=== PATIENT | male | born 1945 | race Caucasian/White ===

== ENCOUNTER 2017-03-10 16:16 | Observation (INO) ==
[2017-03-10 17:13] LABS: Basophils % 0.7 %; Eosinophils # 0.1 K/mcL (0.0-0.6); Eosinophils % 1.7 %; Hemoglobin 16.3 g/dL (12.9-16.9); Immature Granulocytes % 0.2 % (0-4); Lymphocytes # 0.9 K/mcL (0.6-4.6); Lymphocytes % 16.1 %; Mean Corpuscular HGB Conc 33.3 g/dL (31.6-35.5); Mean Corpuscular Hemoglobin 30.9 pg (28.0-33.3); Mean Platelet Volume 9.9 fL (9.4-12.4); Monocytes # 0.5 K/mcL (0.0-1.3); Monocytes % 9.1 %; Neutrophils # 4.2 K/mcL (1.6-8.9); Platelet Count 175 K/mcL (140-400); Red Blood Count 5.27 M/mcL (4.19-5.50); Red Cell Distribution Width 12.8 % (11.5-14.5); Segmented Neutrophils % 72.2 %
[2017-03-10 17:22] LABS: Prothrombin Time 10.4 Seconds (9.4-12.1)
--- NOTE | 2017-03-10 17:30 | Emergency Department Note ---
Disposition Clinical Impression: Chest pain Qualifiers: Chest pain type: unspecified Qualified Code(s): R07.9 - Chest pain, unspecified Disposition: Admitted As Inpatient Condition: Good Time of Disposition: 18:26 Chest Pain HPI - General Chief Complaint: ED Chest Pain Stated Complaint: chest pain Time Seen by Provider: 03/10/17 17:24 Source: patient Mode of arrival: ambulatory Limitations: no limitations Vital Signs Reviewed: Yes Nursing Notes Reviewed: Yes - History of Present Illness HPI Narrative: 72-year-old comes in complaining of chest pain off and on for last 2 weeks. Patient has no history of previous HI. Patient has a history of diabetes hypertension and hypercholesterolemia. He is a family history. Patient is a former smoker. Pt complaint: chest pain Onset (ago): week(s) Duration: intermittent (2) Onset: during exertion Pain Location: substernal, left chest Severity scale (1-10): 0 Quality: tightness, aching Pain Radiation: none Improves with: rest Worsens with: exertion Associated symptoms: Denies: nausea, vomiting Treatments prior to arrival chest pain: none - Related Data Home Medications Medication Instructions Recorded Confirmed Acetaminophen [Tylenol] 650 mg PO Q6HR PRN 12/09/16 12/11/16 Aspirin 81 mg PO DAILY 12/09/16 12/11/16 Benazepril/Hydrochlorothiazide 1 each PO DAILY 12/09/16 12/11/16 [Lotensin Hct 10-12.5 mg Tablet] Cetirizine HCl [Zyrtec] 10 mg PO DAILY 12/09/16 12/11/16 Metoprolol Succinate 25 mg PO DAILY 12/09/16 12/11/16 Pravastatin Sodium [Pravachol] 40 mg PO DAILY 12/09/16 12/11/16 metFORMIN [Glucophage] 1,000 mg PO BIDWM 12/09/16 12/11/16 Ranitidine HCl [Acid Processing Associate] 25 mg PO DAILY PRN 12/11/16 12/11/16 Ranitidine HCl [Acid Processing Associate] 25 mg PO DAILY PRN 12/11/16 12/11/16 Allergies Allergy/AdvReac Type Severity Reaction Status Date / Time No Known Allergies Allergy Verified 12/09/16 13:46 All systems ED: reviewed and negative except as stated. Constitutional: Denies: fever, chills, weakness, weight change Eyes: Denies: eye pain, eye discharge, vision change ENT ED: Denies: ear pain, throat pain, dental pain, hearing loss, epistaxis, congestion, dysphagia Cardiovascular: Reports: chest pain. Denies: palpitations, dyspnea on exertion , edema, syncope Respiratory: Denies: cough, dyspnea, wheezes, hemoptysis, stridor Gastrointestinal: Denies: abdominal pain, nausea, vomiting, diarrhea, constipation, hematemesis, melena, hematochezia Genitourinary: Denies: urgency, dysuria, frequency, hematuria Musculoskeletal: Denies: back pain, neck pain, arthralgia, myalgia Integumentary: Denies: rash, abrasion, lesions Neurological: Denies: headache, weakness, numbness, paresthesias, confusion, abnormal gait, vertigo Psychiatric: Denies: anxiety, depression, suicidal thoughts, homicidal thoughts , auditory hallucinations, visual hallucinations Endocrine: Denies: fatigue Hematological/Lymphatic: Denies: easy bleeding, easy bruising Allergic/Immunologic: Denies: facial swelling, urticaria Chest Pain PMH - Past Medical History Medical history: Reports: cancer, diabetes, hyperlipidemia, hypertension Psychiatric history: Reports: no psych history - Social History Smoking Status: Former smoker Alcohol use: Reports: none Drug use: Reports: none Physical Exam - General Limitations: no limitations General appearance: alert - Head Head exam: atraumatic, normocephalic, normal inspection - Eye Eye exam: Present: normal appearance, PERRL, EOMI - ENT ENT exam: normal exam, normal oropharynx, mucous membranes moist - Neck Neck exam: Present: normal inspection, full ROM, trachea midline - Chest Chest inspection: Present: normal inspection, symmetric chest wall rise - Respiratory Respiratory exam: Present: normal lung sounds bilaterally - Cardiovascular Cardiovascular exam: Present: regular rate, normal rhythm, normal heart sounds - Abdominal Exam Abdominal exam: Present: soft, Non-Tender. Absent: tenderness, distention, guarding, rebound, rigidity - Extremities Exam Extremities exam: Present: normal inspection, full ROM. Absent: tenderness, pedal edema - Expanded Lower Extremity Exam Neurovascular/Tendon exam: Absent: motor deficit, sensory deficit, tendon deficit Gait: not tested/not observed - Back Exam Back exam: Present: normal inspection, full ROM. Absent: tenderness - Neurological Exam Neurological exam: Present: alert, oriented X3 - Psychiatric Psychiatric exam: Present: normal affect, normal mood - Skin Skin exam: Present: warm, dry, intact, normal color Course - Reevaluation(s) Reevaluation #1: 72-year-old comes in with multiple risk factors complaining of intermittent chest pain with exertion. Time: 18:25 - Consultations Consultation #1: Discussed with Eliseo Morales Time: 18:25 Vital Signs Temperature 97.8 F 03/10/17 16:21 Pulse Rate 93 03/10/17 16:21 Respiratory Rate 22 03/10/17 16:21 Blood Pressure 127/83 03/10/17 16:21 O2 Sat by Pulse Oximetry 94 03/10/17 16:21 Temperature 97.8 F 03/10/17 16:21 Pulse Rate 89 03/10/17 17:22 Respiratory Rate 20 03/10/17 17:22 Blood Pressure 120/73 03/10/17 17:22 O2 Sat by Pulse Oximetry 93 03/10/17 17:22 Oxygen Delivery Oxygen Delivery Room Air Chest Pain - Lab Data Result diagrams: 03/10/17 17:01 03/10/17 17:01 Lab Results 03/10/17 03/10/17 03/10/17 Range/Units 17:01 17:01 17:01 WBC 5.8 (4.3-11.1) K/mcL RBC 5.27 (4.19-5.50) M/mcL Hgb 16.3 (12.9-16.9) g/dL Hct 49.0 (37.5-50.1) % MCV 93.0 (83.0-100.0) fL MCH 30.9 (28.0-33.3) pg MCHC 33.3 (31.6-35.5) g/dL RDW 12.8 (11.5-14.5) % Plt Count 175 (140-400) K/mcL MPV 9.9 (9.4-12.4) fL Immature Gran % 0.2 (0-4) % Seg Neutrophils % 72.2 % Lymphocytes % 16.1 % Monocytes % 9.1 % Eosinophils % 1.7 % Basophils % 0.7 % Neutrophils # 4.2 (1.6-8.9) K/mcL Lymphocytes # 0.9 (0.6-4.6) K/mcL Monocytes # 0.5 (0.0-1.3) K/mcL Eosinophils # 0.1 (0.0-0.6) K/mcL Basophils # 0.0 (0.0-0.2) K/mcL PT 10.4 (9.4-12.1) Seconds INR 1.0 APTT 29.0 (26.0-36.0) Seconds Sodium (136-145) mEq/L Potassium (3.5-4.5) mEq/L Chloride (98-109) mEq/L Carbon Dioxide (19-29) mEq/L BUN (8-26) mg/dL Creatinine (0.72-1.25) mg/dL Est GFR ( Amer) (> 60) Est GFR (Non-Af Amer) (> 60) BUN/Creatinine Ratio (6-26) Glucose (70-99) mg/dL Calculated Osmolality (280-300) Calcium (8.6-10.8) mg/dL Troponin I (0-0.03) ng/mL B-Natriuretic Peptide 12 (0-100) pg/mL 03/10/17 03/10/17 Range/Units 17:01 17:01 WBC (4.3-11.1) K/mcL RBC (4.19-5.50) M/mcL Hgb (12.9-16.9) g/dL Hct (37.5-50.1) % MCV (83.0-100.0) fL MCH (28.0-33.3) pg MCHC (31.6-35.5) g/dL RDW (11.5-14.5) % Plt Count (140-400) K/mcL MPV (9.4-12.4) fL Immature Gran % (0-4) % Seg Neutrophils % % Lymphocytes % % Monocytes % % Eosinophils % % Basophils % % Neutrophils # (1.6-8.9) K/mcL Lymphocytes # (0.6-4.6) K/mcL Monocytes # (0.0-1.3) K/mcL Eosinophils # (0.0-0.6) K/mcL Basophils # (0.0-0.2) K/mcL PT (9.4-12.1) Seconds INR APTT (26.0-36.0) Seconds Sodium 140 (136-145) mEq/L Potassium 3.8 (3.5-4.5) mEq/L Chloride 103 (98-109) mEq/L Carbon Dioxide 25 (19-29) mEq/L BUN 26 (8-26) mg/dL Creatinine 1.69 H (0.72-1.25) mg/dL Est GFR ( Amer) 49 L (> 60) Est GFR (Non-Af Amer) 40 L (> 60) BUN/Creatinine Ratio 15 (6-26) Glucose 181 H (70-99) mg/dL Calculated Osmolality 299 (280-300) Calcium 9.3 (8.6-10.8) mg/dL Troponin I 0.00 (0-0.03) ng/mL B-Natriuretic Peptide (0-100) pg/mL - EKG Data EKG attestation: Yes I reviewed and interpreted this EKG. EKG shows normal: sinus rhythm Rate: normal Rhythm: NSR Interpretation: no acute changes Heart Score - Score History: Moderately Suspicious EKG: Non Specific repolarisation Disturbance Age: Greater than 65 Risk Factors: Equal/Greater than 3 risk factor or history of atherosclerotic disease Troponin: Less than normal limit HEART Score Total: 6
[2017-03-10 17:33] LABS: Calcium 9.3 mg/dL (8.6-10.8); Potassium 3.8 mEq/L (3.5-4.5)
[2017-03-10] MEDS ORDERED: Aspirin 81 MG TAB.CHEW PO STA (19:25)
[2017-03-10] MEDS ORDERED: Aspirin 81 MG TAB.CHEW ONE (19:27)
[2017-03-10] MEDS ORDERED: Ondansetron 4 MG/2 ML VIAL IVP PRN (20:45)
[2017-03-10] MEDS ORDERED: Naloxone 0.4 MG/ML INJ IVP PRN (20:45)
[2017-03-10] MEDS ORDERED: *HR* Morphine 2 MG/ML SYRINGE IVP PRN (20:45)
[2017-03-10] MEDS ORDERED: Acetaminophen 325 MG TABLET PO PRN (20:45)
[2017-03-10] MEDS ORDERED: Dextrose Gel 15 GM PO PRN ×2 (20:50)
[2017-03-10] MEDS ORDERED: *HR* Dextrose 50 % in Water (Syg) 50 ML SYRINGE IVP PRN (20:50)
[2017-03-10] MEDS ORDERED: D5% in Water 1,000 ML IVC PRN (20:50)
[2017-03-10] MEDS ORDERED: Insulin LISPRO 300 UNITS/3 ML VIAL SQ SCH (21:00)
[2017-03-10] MEDS ORDERED: Famotidine 20 MG TABLET PO SCH (21:00)
[2017-03-10] MEDS ORDERED: 0.9 % Sodium Chloride 1,000 ML IVC SCH (22:45)
--- NOTE | 2017-03-10 23:34 | Internal Med History&Physical ---
<Dorcas Gonzalez - Last Filed: 03/10/17 23:43> Date of Encounter: 03/10/17 Time of Encounter: 21:00 Assessment and Plan (1) Chest pain Current visit: Yes Status: Acute 1 she has been experiencing chest pain on exertion with associated symptoms of nausea and shortness of breath for the past 2 weeks. Pain is relieved with rest. He did have a stress test in November of this year completed at [facility] which was negative for any ischemia or infarct. Troponin is 0 which we will continue to trend 2 we will consult cardiology-order has been placed day team to follow-up 3 nitrates as needed for chest pain 4 oxygen as needed to maintain SPO2 greater than 92% 5 continue with aspirin and statin we will check lipid profile in a.m. 6 continuous cardiac monitoring Qualifiers: Chest pain type: unspecified Qualified Code(s): R07.9 - Chest pain, unspecified (2) GT (acute kidney injury) Current visit: Yes Status: Acute 1 patient's creatinine is 1.69 which is up from previous which was 1.32. Patient does admit he does not drink or smoke C 80s inhibitor. Suspect this is contributing to his elevation in creatinine. We will hold MIKE inhibitor overnight and give gentle fluids and recheck creatinine in the a.m. 2 monitor intake and output daily weights 3 avoid nephrotoxins (3) Diabetes mellitus Current visit: Yes Status: Acute 1 hold metformin for now Accu-Cheks before meals at bedtime with sliding scale insulin 2 diabetic diet Qualifiers: Diabetes mellitus type: type 2 Diabetes mellitus complication status: without complication Diabetes mellitus intermediate project manager insulin use: without intermediate project manager use Qualified Code(s): E11.9 - Type 2 diabetes mellitus without complications (4) HTN (hypertension) Current visit: No Status: Chronic 1 we will hold MIKE for now due to GT 2 low sodium diet Qualifiers: Hypertension type: essential hypertension Qualified Code(s): I10 - Essential (primary) hypertension (5) DVT prophylaxis Current visit: Yes Status: Acute [facility] Internal Medicine - H&P: HPI Chief complaint: cp Admitted From: Emergency Dept Plans for Post Hospital Care: Home History of present illness: Mr. Vieyra is a 72 year old male past history of diabetes hypertension hyperlipidemia prostate cancer. For the past 2 weeks the patient has been experiencing midsternal chest pain that occurs with exertion and is relieved with rest. He has been taking Tylenol which will at times ease his pain. He has associated symptoms of shortness of breath occasional nausea. Denies any past cardiac history he had a recent stress test in November at [facility] which was negative for any ischemia or infarct. He does have a family history of cardiac disease with his father dying in his 40s from an [place] He is a former smoker. He presented to the ER with the above complaints cardiac workup was completed chest x-ray was negative first troponin was 0. EKG with no ST abnormalities. Presently he is chest pain-free He has been admitted for further workup evaluation. Past Med Surg Social Fam HX - Past Medical History Medical history: cancer, diabetes, hyperlipidemia, hypertension Psychiatric history: no psych history - Social History Smoking Status: Former smoker Smokeless Tobacco Status: No Alcohol use: none Drug use: none - Family History Father Hx Family Cardiac Disorders: Yes ([place]) Hx Family Endocrine Disorder: Yes (DM) Internal Medicine - H&P: Meds Acetaminophen [Tylenol] 650 mg PO Q6HR PRN 12/09/16 [History] Aspirin 81 mg PO DAILY 12/09/16 [History] Cetirizine HCl [Zyrtec] 10 mg PO DAILY PRN 12/09/16 [History] Pravastatin Sodium [Pravachol] 40 mg PO HS 12/09/16 [History] metFORMIN [Glucophage] 1,000 mg PO BIDWM 12/09/16 [History] Ranitidine HCl [Acid Can Operator] 75 mg PO HS 12/11/16 [History] Benazepril/Hydrochlorothiazide [Lotensin Hct 20-12.5 mg Tablet] 1 each PO DAILY 03/10/17 [History] 3 Allergy/AdvReac Type Severity Reaction Status Date / Time No Known Allergies Allergy Verified 12/09/16 13:46 All Systems PM: A 10-system review of systems was performed and is negative for pertinent findings except as documented above in the HPI. - Constitutional Constitutional: no chills, no fever(s), no night sweats - EENT Eyes: no change in vision, no discharge, no pain, no photophobia Ears: no ear discharge, no ear pain, no tinnitus Nose, mouth and throat: no dysphagia, no nasal discharge, no neck pain, no sore throat - Cardiovascular Cardiovascular ROS IM: chest pain - Respiratory Respiratory: dyspnea on exertion, no cough, no dyspnea, no wheezing, no excessive phlegm production - Gastrointestinal Gastrointestinal: no abdominal pain, no diarrhea, no hematemesis, no hematochezia, no melena, no nausea, no vomiting - Musculoskeletal Musculoskeletal ROS IM: no numbness, no tingling - Integumentary Integumentary IM: no rash, no unusual bruising - Neurological Neurological ROS: no confusion, no convulsions, no focal weakness, no numbness, no tingling, no tremor(s) - Hematologic/Lymphatic Hematologic/Lymphatic: no easy bruising - Constitutional Vitals: Temp Pulse Resp BP Pulse Ox 97.5 F L 66 12 148/82 95 03/10/17 22:48 03/10/17 22:48 03/10/17 22:48 03/10/17 22:48 03/10/17 22:48 General appearance: Present: A&O X 3, answers questions appropriately - Head Head exam: Present: atraumatic, normocephalic - Eye Eye exam: Present: PERRL, conjuntiva pink, sclera anicteric Pupils: Present: PERRL - Neck Neck exam general surgery: Present: supple, trachea midline. Absent: lymphadenopathy - Respiratory Respiratory exam: Present: CTAB. Absent: accessory muscle use, rales, rhonchi, wheezes - Cardiovascular Cardiovascular exam: Present: RRR, +S1, +S2. Absent: diastolic murmur, gallop, rubs, systolic murmur - GI/Abdominal GI/Abdominal exam: Present: normal bowel sounds, soft, no peritoneal signs. Absent: distended, tenderness - Extremities Exam Extremities exam: Present: warm, radial pulses palpable and symmetrical. Absent : calf tenderness, cyanotic, pedal edema - Neurological Exam Neurological exam: Present: CN II-XII intact, oriented X3, no focal deficits. Absent: pronater drift, facial droop, speech deficit - Skin Skin exam: Present: dry, intact Internal Med - H&P Results - Labs CBC & Chem 7: 03/10/17 17:01 03/10/17 17:01 - EKG Data EKG shows normal: sinus rhythm - EKG Data Prior EKG available for review: yes When compared to previous EKG: there is no significant change - Diagnostic Studies Other Images Additional comments: Chest X-Ray 03/10/17 16:25 IMPRESSION: No acute process. D/ / Iván Leahy MD / Iván Leahy MD Interpreting Provider: Iván Leahy MD <MichaelDeng weinstein - Last Filed: 03/11/17 00:10> Date of Encounter: 03/10/17 Internal Medicine - H&P: HPI History of present illness: Mr. Vieyra is a 72 year old male Past Med Surg Social Fam HX - Past Surgical History Surgical History: other (colonoscopy with polypectomy) All Systems PM: A 10-system review of systems was performed and is negative for pertinent findings except as documented above in the HPI. - Constitutional Vitals: Temp Pulse Resp BP Pulse Ox 97.5 F L 66 12 148/82 95 03/10/17 22:48 03/10/17 22:48 03/10/17 22:48 03/10/17 22:48 03/10/17 22:48 Internal Med - H&P Results - Labs CBC & Chem 7: 03/10/17 17:01 03/10/17 17:01 - Attending Attestation I personally interviewed and examined this patient and my medical decision- making was reviewed with the Advanced Practice Nurse. I agree with the documented findings, disposition and treatment plan as described. Patient with no prior history of CAD but significant family history of this condition with a negative stress test in July this year comes in with progressively worsening exertional chest pain that is exercise limiting. We will appreciate cardiology input for consideration of cardiac catheterization. Deng Pan MD, MPH Hospitalist
[2017-03-11 05:33] LABS: Basophils # 0.1 K/mcL (0.0-0.2); Basophils % 0.9 %; Eosinophils # 0.1 K/mcL (0.0-0.6); Eosinophils % 2.5 %; Hematocrit 45.4 % (37.5-50.1); Hemoglobin 15.5 g/dL (12.9-16.9); Immature Granulocytes % 0.4 % (0-4); Lymphocytes # 1.1 K/mcL (0.6-4.6); Lymphocytes % 19.1 %; Mean Corpuscular HGB Conc 34.1 g/dL (31.6-35.5); Mean Corpuscular Hemoglobin 30.7 pg (28.0-33.3); Mean Corpuscular Volume 89.9 fL (83.0-100.0); Mean Platelet Volume 9.6 fL (9.4-12.4); Monocytes # 0.7 K/mcL (0.0-1.3); Neutrophils # 3.6 K/mcL (1.6-8.9); Platelet Count 159 K/mcL (140-400); Red Blood Count 5.05 M/mcL (4.19-5.50); Segmented Neutrophils % 65.1 %
[2017-03-11 05:49] LABS: BUN/Creatinine Ratio 18 (6-26); Blood Urea Nitrogen 23 mg/dL (8-26); Calcium 9.2 mg/dL (8.6-10.8); Carbon Dioxide 24 mEq/L (19-29); Chloride 107 mEq/L (98-109); Chol/HDL Ratio 3.5 (0-4.9); Cholesterol 143 mg/dL (< 200); Glucose 103 mg/dL (70-99); HDL Cholesterol 41 mg/dL (40-59); LDL Cholesterol,Calculated 77 mg/dL (0-99); Magnesium 1.9 mg/dL (1.6-2.6); Osmolality,Calculated 294 (280-300); Potassium 3.9 mEq/L (3.5-4.5); Sodium 140 mEq/L (136-145); Triglycerides 125 mg/dL (< 150); eGFR For African Americans > 60 (> 60); eGFR For Non-African Americans 56 (> 60)
[2017-03-11] MEDS ORDERED: Aspirin 81 MG TAB.CHEW PO SCH (09:00)
[2017-03-11] MEDS: Insulin LISPRO 300 UNITS/3 ML VIAL SQ SCH ×2 (09:23→12:29)
[2017-03-11] MEDS ORDERED: Isosorbide MONOnitrate (24 HR) 30 MG TAB.ER.24H PO SCH (11:15)
--- NOTE | 2017-03-11 11:19 | Cardiology Consult Note ---
Date of Encounter: 03/11/17 Time of Encounter: 11:15 Assessment and Plan (1) Chest pain Current Visit: Yes Status: Acute C/o typical chest pain symptoms. Cardiac risk factors include DM, HTN, HLD, and previous tobacco use. Troponin negative x3. EKG reported to show no acute changes. I do not have EKG available for my review. EKG ordered. Stress test completed earlier this year was negative for ischemia. He met 8.1 mets. good exercise capacity. LHC vs. medical management recommended. Patient is considering. Start metoprolol and imdur. Check TTE. Qualifiers: Chest pain type: unspecified Qualified Code(s): R07.9 - Chest pain, unspecified (2) HTN (hypertension) Current Visit: No Status: Chronic B/p acceptable. Qualifiers: Hypertension type: essential hypertension Qualified Code(s): I10 - Essential (primary) hypertension Discussion w patient/family: The assessment and plan as outlined above was discussed with the patient and/or family members who expressed understanding and agreement. All questions were answered. Thank you for involving us in the care of your patient. Please call with any questions. History of Present Illness Consult date: 03/11/17 Requesting physician: Deng Pan Consult reason: Chest pain Chief complaint: Chest pain for 2 weeks History of present illness: Mr. Vieyra is a 72 year old male with a history of DM, HTN, HLD, and previous tobacco use who presents with chest pain. He c/o midstarnal non-radiating chest pain starting 2 weeks ago. The pain occurs when he walks and is associated with SOB. He states that he walks a mile a day. The last couple of times he walked he had to stop due to chest pain. He denies history of CAD. He saw Dr. Mata earlier this year with chest discomfort. He underwent exercise nuclear stress test that was found to be negative 07/2016. Past Med Surg Social Fam HX - Past Medical History Attestation: Yes The following information was validated with the patient. Medical history: cancer (prostate), diabetes, hyperlipidemia, hypertension Psychiatric history: no psych history - Past Surgical History Surgical History: other (colonoscopy with polypectomy) - Social History Smoking Status: Former smoker Smokeless Tobacco Status: No Alcohol use: none Drug use: none - Family History Father Hx Family Cardiac Disorders: Yes ([place]) Hx Family Endocrine Disorder: Yes (DM) Medications and Allergies Acetaminophen [Tylenol] 650 mg PO Q6HR PRN 12/09/16 [History] Aspirin 81 mg PO DAILY 12/09/16 [History] Cetirizine HCl [Zyrtec] 10 mg PO DAILY PRN 12/09/16 [History] Pravastatin Sodium [Pravachol] 40 mg PO HS 12/09/16 [History] metFORMIN [Glucophage] 1,000 mg PO BIDWM 12/09/16 [History] Ranitidine HCl [Acid Dental Professional] 75 mg PO HS 12/11/16 [History] Benazepril/Hydrochlorothiazide [Lotensin Hct 20-12.5 mg Tablet] 1 each PO DAILY 03/10/17 [History] 3 Allergy/AdvReac Type Severity Reaction Status Date / Time No Known Allergies Allergy Verified 12/09/16 13:46 All Systems Review: A 10-system review of systems was performed and is negative for pertinent findings except as documented above in the HPI. Physical Examination Vital Signs, Last 4 Hours Temp Pulse Resp BP Pulse Ox 03/11/17 11:00 97.7 F 67 16 122/72 95 General: Conversant, No Apparent Distress HEENT: Atraumatic, Normocephaly, Mucus Membranes Moist Neck: No JVD, Normal carotid pulses Cardiac: Reg Rate and Rhythm, Normal S1 and S2, No Murmur Lungs: Normal Breath Sounds, No Wheeze, Rales, Rhonchi Neuro: Alert and responsive, No focal deficits noted Abdomen: Soft, Non-Tender Skin: No rashes noted on visualized skin Musculoskeletal: No Chest Wall Tenderness Extremities: No Clubbing, No Cyanosis, No Edema, Normal Pulses Results 03/11/17 04:59 03/11/17 04:59 Lab Results 03/10/17 03/11/17 03/11/17 23:06 04:59 04:59 WBC 5.5 Hgb 15.5 Hct 45.4 Plt Count 159 Sodium 140 Potassium 3.9 Chloride 107 Carbon Dioxide 24 BUN 23 Creatinine 1.26 H Glucose 103 H Calcium 9.2 Magnesium 1.9 Troponin I 0.00 03/11/17 04:59 WBC Hgb Hct Plt Count Sodium Potassium Chloride Carbon Dioxide BUN Creatinine Glucose Calcium Magnesium Troponin I 0.00 - Imaging and Cardiology Echo: pending Consult Discharge Plan - Plan
--- NOTE | 2017-03-11 14:03 | Discharge Summary ---
Date of Encounter: 03/11/17 Time of Encounter: 10:00 - Discharge Diagnosis (1) Chest pain Priority: Primary Status: Acute Comments: Patient has been experiencing chest pain with exertion and nausea, dyspnea on exertion for the last 2 weeks. Patient also reports feeling as if his chest pounding while he is up walking. Pain is located midsternally without radiation. Patient denies diaphoresis. Pain was relieved with rest. Stress test was negative in November, at [facility]. Currently, patient denies any chest pain, no dyspnea on exertion while up walking around the room. He also denies shortness of breath at rest. Troponins were negative 3, EKG normal sinus with no acute ST changes. Patient was seen by cardiology who recommends medical management, patient is in agreement with this approach. Patient has already started on Imdur at admission , also start metoprolol, and check TTE. Qualifiers: Chest pain type: unspecified Qualified Code(s): R07.9 - Chest pain, unspecified (2) GT (acute kidney injury) Priority: Secondary Status: Acute Comments: Renal function is improving. Serum creatinines 1.26, GFR is 56. Continue to avoid nephrotoxins. Lisinopril has been stopped, patient is aware to continue to increase fluid intake, primarily water. Patient will restart lisinopril for blood pressure control on Wednesday and follow up with primary care for further management and medication adjustments. (3) Diabetes mellitus Priority: Secondary Status: Chronic Comments: Continue home medication and Accu-Chek regimen as established prior to admission. Qualifiers: Diabetes mellitus type: type 2 Diabetes mellitus complication status: without complication Diabetes mellitus fci insulin use: without termite control service representative use Qualified Code(s): E11.9 - Type 2 diabetes mellitus without complications (4) HTN (hypertension) Priority: Secondary Status: Chronic Comments: Well-controlled. Continue home medications. Lisinopril has been held due to GT. Renal function is improving, GFR 66, serum creatinine 1.26. Recommend patient does not take it for 2 more days and will restart on Wednesday. Patient will need to follow up with primary care for continued monitoring and medication changes. Qualifiers: Hypertension type: essential hypertension Qualified Code(s): I10 - Essential (primary) hypertension (5) DVT prophylaxis Priority: Primary Status: Acute Comments: LU fuller. Early ambulation. - Discharge Medications Prescriptions: Isosorbide MONOnitrate (24 HR) [Imdur] 30 mg PO DAILY #30 tab.er.24h Metoprolol [Lopressor] 25 mg PO BID #60 tablet Home Medications: Acetaminophen [Tylenol] 650 mg PO Q6HR PRN 12/09/16 [History] Aspirin 81 mg PO DAILY 12/09/16 [History] Cetirizine HCl [Zyrtec] 10 mg PO DAILY PRN 12/09/16 [History] Pravastatin Sodium [Pravachol] 40 mg PO HS 12/09/16 [History] metFORMIN [Glucophage] 1,000 mg PO BIDWM 12/09/16 [History] Ranitidine HCl [Acid Needle Maker] 75 mg PO HS 12/11/16 [History] Benazepril/Hydrochlorothiazide [Lotensin Hct 20-12.5 mg Tablet] 1 each PO DAILY 03/10/17 [History] Isosorbide MONOnitrate (24 HR) [Imdur] 30 mg PO DAILY #30 tab.er.24h 03/11/17 [ Rx] Metoprolol [Lopressor] 25 mg PO BID #60 tablet 03/11/17 [Rx] Allergies/Adverse Reactions: 3 Allergy/AdvReac Type Severity Reaction Status Date / Time No Known Allergies Allergy Verified 12/09/16 13:46 Procedures/tests Complete & Pending: Procedures Performed prior 72 hours Category Date Time Status EKG [ECG 12 lead ECG] [ECG] Routine Y 03/11/17 11:23 Ordered EV echocardiogram Routine Y 03/11/17 11:22 Ordered Date of admission: 03/10/17 18:36 Primary care physician: José Feldman MD Consults: 03/10/17 22:35 Consult to Cardiology [CONS] Routine Comment: Consulting Provider: Cardiology [place] Reason for Consult: CP- had stress test at [place] 11/2016 - no infarct/ ischemia Time Notified: 22:37 Call Completed: No Discharging clinician: Taylor Ramírez Anticipated date of discharge: 03/11/17 - Patient Status Disposition: Home, Self-Care Functional capacity at discharge: independent ambulation Overall status at discharge: patient is progressing back to baseline - Discharge Instructions Follow Up With: José Feldman MD [Primary Care Provider] - Forms: ED Satisfaction Letter Additional Instructions: Follow-up the primary care physician for a follow-up visit within the next 7-10 days. Follow-up with cardiology in the clinic as scheduled. Hold her lisinopril and restart again on Wednesday. Take new medications as directed. Resume all other home medications. Resume activity as tolerated. Return to the emergency department as needed for any other problems or concerns , or if symptoms return or worsen. - Diet and Activity Activity: increase activity as tolerated, resume usual activities as tolerated Diet: low fat, low cholesterol Hospital course: Mr. Vieyra is a 72 year old male with past medical history of diabetes, hypertension. He presents to the emergency department with complaint of two- week history of midsternal chest pain with exertion, nausea, pain is relieved with rest, and dyspnea on exertion. There is no radiation. These been taking Tylenol which at times does seem to ease the pain. Patient had a recent stress test in November of her hospital was negative for ischemia or infarct. Patient's risk factors include being a former smoker, hypertension, hyperlipidemia and diabetes. Troponins were negative, EKG was normal sinus with no ST changes. Patient has been seen by cardiology and they have agreed upon medical management for pain. He was started on Imdur 30 mg and will be started on a beta doreen, metoprolol 25 mg by mouth twice a day. Since admission, patient denies any chest pain, dyspnea on exertion, or shortness of breath at rest. His vital signs are stable and within normal limits. Patient with chronic renal disease, he does not see nephrology. On admission serum creatinine 1.69 GFR 40, with IV hydration and stopping MIKE inhibitor, creatinine has improved 1.26 GFR is 56. He will continue to hold lisinopril and restarted on the weekend. Other labs are within normal limits. Lipid panel is within normal limits, and A1c is 6.3 in November. Patient will resume his normal home medications, unless otherwise stated above. Patient will be discharged pending echocardiogram and cardiology review. - Time Spent with Patient Total time spent providing and/or coordinating discharge services: Less than 30 minutes - Constitutional Vitals: Temp Pulse Resp BP Pulse Ox 97.7 F 67 16 122/72 95 03/11/17 11:00 03/11/17 11:00 03/11/17 11:00 03/11/17 11:00 10/12/17 11:00 General appearance: Present: cooperative, A&O X 3, pleasant, no acute distress, answers questions appropriately - Head Head exam: Present: atraumatic, normal inspection, normocephalic - Eye Eye exam: Present: normal appearance, conjuntiva pink, sclera anicteric - Neck Neck exam general surgery: Present: supple, trachea midline. Absent: lymphadenopathy, tenderness - Respiratory Respiratory exam: Present: CTAB. Absent: accessory muscle use, chest wall tenderness, rales, rhonchi, wheezes - Cardiovascular Cardiovascular exam: Present: RRR, +S1, +S2. Absent: diastolic murmur, gallop, rubs, systolic murmur - GI/Abdominal GI/Abdominal exam: Present: normal bowel sounds, soft. Absent: distended, hepatomegaly, tenderness - Extremities Exam Extremities exam: Present: normal capillary refill, normal inspection, warm, radial pulses palpable and symmetrical. Absent: calf tenderness, cyanotic, pedal edema - Neurological Exam Neurological exam: Present: alert, oriented X3, no focal deficits. Absent: altered, facial droop, speech deficit - Skin Skin exam: Present: dry, intact, normal color, warm. Absent: rash - VTE Documentation of Mechanical Device: Graduated compression elastic hosiery
[2017-03-11 15:32] VITALS: BP 101/61
--- NOTE | 2017-03-11 20:19 | Electrocardiograph Report ---
[address] [address] Test Date: 2017-03-10 Pat Name: Vannesa Vieyra Department: 103 Room: 3B Gender: M Neighborhood Aide: : 1945 Requested By: Laura See Order Number: [id number] Reading MD: Troy Alba MD Measurements Intervals [place] Rate: 85 P: 42 MA: 155 QRS: 47 QRSD: 80 T: -8 QT: 337 QTc: 380 Interpretive Statements SINUS RHYTHM BASELINE ARTIFACT Electronically Signed On 03-11-2017 20:17:54 EDT by Troy Alba MD
== END 2017-03-11 16:12 | disposition home or self-care (01) ==
LOC: 3BNU 16:16 → EMEROO 16:16 → 3BNU 19:25
PROVIDERS: ADMIT Nurse Practitioner Family; ATTEND Registered Nurse